=== PATIENT | female | born 1970 | race American Indian/Alaskan Native ===

== ENCOUNTER 2018-07-16 12:10 | Inpatient (IN) | payer OTHER ==
[2018-07-16] MEDS ORDERED: ASPIRIN PO ONE (12:40)
[2018-07-16] MEDS ORDERED: ZOFRAN IV ONE (13:09)
[2018-07-16] MEDS ORDERED: NITRO-BID 2% TP ONE (13:09)
[2018-07-16] MEDS ORDERED: SUBLIMAZE IV ONE (13:09)
[2018-07-16] MEDS ORDERED: PEPCID IV ONE (13:09)
[2018-07-16 13:17] LABS: Basophils % (Auto) 0.4 % (0.0-1.8); Eosinophils # (Auto) 0.2 K/mm3 (0.0-0.4); Eosinophils % (Auto) 2.7 % (0.0-4.3); Hematocrit 24.9 % (30.3-42.9); Hemoglobin 7.7 gm/dl (10.1-14.3); Lymphocytes # (Auto) 1.4 K/mm3 (1.2-5.4); Lymphocytes % (Auto) 17.3 % (13.4-35.0); Mean Corpuscular HGB Conc 31 % (30-34); Monocytes # (Auto) 0.5 K/mm3 (0.0-0.8); Monocytes % (Auto) 5.7 % (0.0-7.3); Platelet Count 377 K/mm3 (140-440); Red Blood Count 3.69 M/mm3 (3.65-5.03); Red Cell Distribution Width 18.1 % (13.2-15.2)
[2018-07-16 13:18] LABS: Mean Corpuscular Volume 68 fl (79-97)
--- NOTE | 2018-07-16 13:18 | Emergency Department Report ---
HPI - General Chief Complaint: Chest Pain Time Seen by Provider: 07/16/18 12:59 - HPI HPI: Room 5 The patient is a 48-year-old female presenting with a chief complaint of chest pain. The patient states she was at work which began feeling palpitations and then felt hot and clammy. Patient states she began feeling dizzy and then she developed left-sided chest pain that was sharp and dull in nature. The patient states her chest pain has been constant and associated with nausea but she denies vomiting, shortness of breath or diaphoresis. Patient was administered nitroglycerin and she states her chest pain improved slightly. The patient now gives her chest pain score of 8-9/10. The patient states her last stress test occurred in August 2017 but she has never had a cardiac catheterization Location: Chest Duration: One day Quality: Sharp/dull Severity: 8-9/10 Modifying factors: [see above] Context: [see above] Mode of transportation: [not driving] ED Past Medical Hx - Past Medical History Previous Medical History?: Yes Hx Hypertension: Yes Additional medical history: hypokalemia, arrhythmias, hypoglycemia, acide reflux, renal mass, gallstones - Surgical History Past Surgical History?: Yes Additional Surgical History: oral; DNC - Family History Family history: no significant - Social History Smoking Status: Former Smoker (none 2-3 years) Substance Use Type: None (denies illicit drug use), Alcohol (occasional) ED Review of Systems ROS: Stated complaint: CHEST PAIN Other details as noted in HPI Constitutional: denies: diaphoresis Eyes: denies: eye pain ENT: denies: throat pain Respiratory: denies: shortness of breath Cardiovascular: chest pain, palpitations Endocrine: no symptoms reported Gastrointestinal: nausea. denies: vomiting Genitourinary: denies: dysuria Musculoskeletal: denies: back pain Neurological: headache (after nitroglycerin) Physical Exam - Physical Exam Vital Signs: Vital Signs 07/16/18 07/16/18 12:28 12:30 Pulse Rate 73 Respiratory 13 Rate Blood Pressure 176/87 O2 Sat by Pulse 100 100 Oximetry Physical Exam: GENERAL: The patient is well-developed well-nourished female lying on stretcher not appearing to be in acute distress. [] HEENT: Normocephalic. Atraumatic. Extraocular motions are intact. Patient has moist mucous membranes. NECK: Supple. Trachea midline CHEST/LUNGS: Clear to auscultation. There is no respiratory distress noted. HEART/CARDIOVASCULAR: Regular. There is no tachycardia. There is no gallop rub or murmur. ABDOMEN: Abdomen is soft, nontender. Patient has normal bowel sounds. There is no abdominal distention. Frequent eructation SKIN: There is no rash. There is no edema. There is no diaphoresis. NEURO: The patient is awake, alert, and oriented. The patient is cooperative. The patient has normal speech MUSCULOSKELETAL: There is no evidence of acute injury. ED Course Vital Signs 07/16/18 07/16/18 12:28 12:30 Pulse Rate 73 Respiratory 13 Rate Blood Pressure 176/87 O2 Sat by Pulse 100 100 Oximetry ED Medical Decision Making - Lab Data Result diagrams: 07/16/18 12:49 07/16/18 12:45 - EKG Data -: EKG Interpreted by Me EKG shows normal: sinus rhythm Rate: normal - EKG Data When compared to previous EKG there are: previous EKG unavailable Interpretation: nonspecific ST-T wave eduar (T-wave inversion in lead 3) - Radiology Data Radiology results: report reviewed (chest x-ray), image reviewed (chest x-ray) interpreted by me: Chest x-ray-no focal infiltrates, no pneumothorax [facility] [address] [place] [address] XRay Report Signed Patient: LINWOOD GUTIERREZ MR#: [id number] : 1970 Acct:[id number] Age/Sex: 48 / F ADM Date: 07/16/18 Loc: ED Attending Dr: Ordering Physician: MARIA VICTORIA DAVIS MD Date of Service: 07/16/18 Procedure(s): XR chest 1V ap Accession Number(s): [id number] cc: MARIA VICTORIA DAVIS MD Fluoro Time In Minutes: FINAL REPORT EXAM: XR CHEST 1V AP HISTORY: chest pain COMPARISON: None. TECHNIQUE: Single frontal view of the chest FINDINGS: The cardiomediastinal silhouette is normal in appearance. The lungs are clear without focal consolidation. There is no pleural effusion or pneumothorax. There is no acute soft tissue or osseous abnormality. IMPRESSION: No acute cardiopulmonary disease. Transcribed By: HAFSA Dictated By: JOSE ALBERTO LUNA MD Electronically Authenticated By: JOSE ALBERTO LUNA MD Signed Date/Time: 07/16/18 1343 DD/ 134 TD/TT: 07/16/18 134 - Differential Diagnosis ACS, pericarditis, GERD, gastritis Critical care attestation.: If time is entered above; I have spent that time in minutes in the direct care of this critically ill patient, excluding procedure time. ED Disposition Clinical Impression: Chest pain Disposition: - OP ADMIT IP TO THIS HOSP Is pt being admited?: Yes Does the pt Need Aspirin: Yes Condition: Fair Instructions: Chest Pain (ED) Referrals: DANDRE FREEDWASKOM MD GONZALO [Primary Care Provider] - 3-5 Days Time of Disposition: 13:59 (hospitalist paged (Dr Ann))
[2018-07-16 13:25] LABS: BUN/Creatinine Ratio 22; Blood Urea Nitrogen 13 mg/dL (7-17); Calcium 8.2 mg/dL (8.4-10.2); Hemolysis Index 1
--- NOTE | 2018-07-16 13:43 | XRay Report ---
FINAL REPORT EXAM: XR CHEST 1V AP HISTORY: chest pain COMPARISON: None. TECHNIQUE: Single frontal view of the chest FINDINGS: The cardiomediastinal silhouette is normal in appearance. The lungs are clear without focal consolidation. There is no pleural effusion or pneumothorax. There is no acute soft tissue or osseous abnormality. IMPRESSION: No acute cardiopulmonary disease.
[2018-07-16] MEDS ORDERED: K-DUR PO ONE ×3 (13:56→16:40)
[2018-07-16] MEDS: DILAUDID IV PRN (20:41)
[2018-07-16] MEDS ORDERED: ZOFRAN IV PRN (23:26)
[2018-07-16] MEDS ORDERED: SODIUM CHLORIDE FLUSH SYRINGE 10 ML IV PRN (23:26)
[2018-07-16] MEDS ORDERED: TYLENOL PO PRN (23:26)
--- NOTE | 2018-07-16 23:28 | History and Physical Report ---
History of Present Illness Date of examination: 07/16/18 Date of admission: 07/16/18 14:12 Chief complaint: Chest pain for 1 day History of present illness: 48-year-old female presenting with a chief complaint of chest pain. The patient states she was at work which began feeling palpitations and then felt hot and clammy. Patient states she began feeling dizzy and then she developed left- sided chest pain that was sharp and dull in nature. The patient states her chest pain has been constant and associated with nausea but she denies vomiting, shortness of breath or diaphoresis. Patient was administered nitroglycerin and she states her chest pain improved slightly. The patient now gives her chest pain score of 8-9/10. The patient states her last stress test occurred in August 2017 but she has never had a cardiac catheterization Past Medical History Previous Medical History?: Yes Hx Hypertension: Yes Additional medical history: hypokalemia, arrhythmias, hypoglycemia, acide reflux, renal mass, gallstones Surgical History Past Surgical History?: Yes Additional Surgical History: oral; DNC Family History Family history: no significant Social History Smoking Status: Former Smoker (none 2-3 years) Substance Use Type: None (denies illicit drug use), Alcohol (occasional) Review of Systems ROS: Stated complaint: CHEST PAIN Other details as noted in HPI Constitutional: denies: diaphoresis Eyes: denies: eye pain ENT: denies: throat pain Respiratory: denies: shortness of breath Cardiovascular: chest pain, palpitations Endocrine: no symptoms reported Gastrointestinal: nausea. denies: vomiting Genitourinary: denies: dysuria Musculoskeletal: denies: back pain Neurological: headache (after nitroglycerin) Medications and Allergies Allergies Allergy/AdvReac Type Severity Reaction Status Date / Time peach AdvReac Unknown Verified 07/16/18 12:36 Active Meds: Active Medications Hydromorphone HCl (Dilaudid) 0.5 mg IV Q3H PRN PRN Reason: Pain , Severe (7-10) Last Admin: 07/16/18 20:41 Dose: 0.5 mg Documented by: Exam - Constitutional Vitals: Temp Pulse Resp BP Pulse Ox 97.7 F 57 L 18 147/66 96 07/16/18 19:49 07/16/18 22:00 07/16/18 22:00 07/16/18 19:49 07/16/18 22:00 General appearance: Present: no acute distress, well-nourished - EENT Eyes: Present: PERRL ENT: hearing intact, clear oral mucosa - Neck Neck: Present: supple, normal ROM - Respiratory Respiratory effort: normal Respiratory: bilateral: CTA - Cardiovascular Heart rate: 78 Rhythm: regular Heart Sounds: Present: S1 & S2. Absent: rub, click - Extremities Extremities: no ischemia, pulses intact, pulses symmetrical, No edema Peripheral Pulses: within normal limits - Abdominal General gastrointestinal: Present: soft, non-tender, non-distended, normal bowel sounds Female genitourinary: Present: normal - Rectal Rectal Exam: deferred - Integumentary Integumentary: Present: clear, warm, dry - Musculoskeletal Musculoskeletal: gait normal, strength equal bilaterally - Psychiatric Psychiatric: appropriate mood/affect, intact judgment & insight - Neurologic Neurologic: CNII-XII intact, moves all extremities - Allied Health Allied health notes reviewed: nursing, case management Results - Labs CBC & Chem 7: 07/16/18 12:49 07/16/18 12:45 Labs: Laboratory Last Values WBC 8.3 K/mm3 (4.5-11.0) 07/16/18 12:49 RBC 3.69 M/mm3 (3.65-5.03) 07/16/18 12:49 Hgb 7.7 gm/dl (10.1-14.3) L 07/16/18 12:49 Hct 24.9 % (30.3-42.9) L 07/16/18 12:49 MCV 68 fl (79-97) L 07/16/18 12:49 MCH 21 pg (28-32) L 07/16/18 12:49 MCHC 31 % (30-34) 07/16/18 12:49 RDW 18.1 % (13.2-15.2) H 07/16/18 12:49 Plt Count 377 K/mm3 (140-440) 07/16/18 12:49 Lymph % (Auto) 17.3 % (13.4-35.0) 07/16/18 12:49 [place] % (Auto) 5.7 % (0.0-7.3) 07/16/18 12:49 Eos % (Auto) 2.7 % (0.0-4.3) 07/16/18 12:49 Baso % (Auto) 0.4 % (0.0-1.8) 07/16/18 12:49 Lymph # 1.4 K/mm3 (1.2-5.4) 07/16/18 12:49 [place] # 0.5 K/mm3 (0.0-0.8) 07/16/18 12:49 Eos # 0.2 K/mm3 (0.0-0.4) 07/16/18 12:49 Baso # 0.0 K/mm3 (0.0-0.1) 07/16/18 12:49 Seg Neutrophils % 73.9 % (40.0-70.0) H 07/16/18 12:49 Seg Neutrophils # 6.1 K/mm3 (1.8-7.7) 07/16/18 12:49 Sodium 140 mmol/L (137-145) 07/16/18 12:45 Potassium 3.1 mmol/L (3.6-5.0) L 07/16/18 12:45 Chloride 101.9 mmol/L (98-107) 07/16/18 12:45 Carbon Dioxide 27 mmol/L (22-30) 07/16/18 12:45 Anion Gap 14 mmol/L 07/16/18 12:45 BUN 13 mg/dL (7-17) 07/16/18 12:45 Creatinine 0.6 mg/dL (0.7-1.2) L 07/16/18 12:45 Estimated GFR > 60 ml/min 07/16/18 12:45 BUN/Creatinine Ratio 22 % 07/16/18 12:45 Glucose 88 mg/dL (65-100) 07/16/18 12:45 Calcium 8.2 mg/dL (8.4-10.2) L 07/16/18 12:45 Troponin T < 0.010 ng/mL (0.00-0.029) 07/16/18 19:27 - Imaging and Cardiology EKG: report reviewed (NSR 82/min LVH) Chest x-ray: report reviewed (NAF) Assessment and Plan Advance Directives: Yes (Full code) VTE prophylaxis?: Chemical Plan of care discussed with patient/family: Yes - Patient Problems (1) Chest pain Current Visit: Yes Status: Acute Qualifiers: Chest pain type: unspecified Qualified Code(s): R07.9 - Chest pain, unspecified Plan to address problem: SChest pain r/o [place] Protocol lexiscan on Wednesday (2) Anemia Current Visit: Yes Status: Chronic Qualifiers: Anemia type: unspecified type Qualified Code(s): D64.9 - Anemia, unspecified Plan to address problem: Check iron levels,B12 ,FOLIC ACID (3) Hypokalemia Current Visit: Yes Status: Acute Plan to address problem: Supplemented (4) DVT prophylaxis Current Visit: Yes Status: Acute Plan to address problem: On Lovenox and GI prophylaxis
[2018-07-17] MEDS ORDERED: K-DUR PO ONE ×2 (03:34→09:00)
[2018-07-17 05:32] LABS: BUN/Creatinine Ratio 16; Blood Urea Nitrogen 8 mg/dL (7-17); Hemolysis Index 0
[2018-07-17] MEDS: PERCOCET 5/325 PO PRN ×2 (10:13→16:10)
[2018-07-17] MEDS: SODIUM CHLORIDE FLUSH SYRINGE 10 ML IV SCH ×2 (10:24→22:43)
[2018-07-17 11:04] LABS: % Iron Saturation 5.99 %
--- NOTE | 2018-07-17 17:25 | Progress Note ---
Assessment and Plan - Chest pain Likely costochondritis Continue with aspirin, oxygen, nitroglycerin, morphine. Lexiscan stress test for 07/18/2018 - Severe anemia of iron deficiency Secondary to menorrhagia Supplement iron Counseling and on permanent treatment for menorrhagia done as patient has 5 children - Hypokalemia Supplement for Will check mg level -DVT prophylaxis SCDs only given patient's severe anemia - Disposition: supplement potassium level, discharge home if stress test is normal on oral iron supplementation. Time spent: 30 minutes Subjective Date of service: 07/17/18 Principal diagnosis: chest pain, severe anemia Interval history: Still having chest pain. Reproducible. No palpitations orthopnea present, dyspnea Objective - Exam Narrative Exam: Constitutional: Well-nourished well-developed. In no distress Head: Normocephalic atraumatic Eyes: Conjunctiva pallor. Pupils are equal round and reactive to light Nose: No enlarged turbinates, no septal deviation. Mouth: Moist mucous membranes. Neck: Supple no thyromegaly. No bruit. No JVD Heart: Regular rate and rhythm, S1-S2 normal. No rubs murmurs or gallop Lungs: Clear to auscultation bilaterally. no rales or rhonchi Abdomen: Soft, nontender. Bowel sound are present. Extremities: No edema, no cyanosis, no clubbing. Neuro: Alert oriented Oriented x3. No focal sensory or motor deficit. Skin: No rashes or hyperpigmented spots Musculoskeletal system: No joint pain or swelling Hematological: No petechia or subcutanous hemorrhages. Immunological: No multiple septic spots on the skin Lymphatic: No generalized lymphadenopathy Psychiatry: Euthymic. Calm. - Constitutional Vitals: Vital Signs - 12hr 07/17/18 07/17/18 07/17/18 07:35 10:00 12:21 Temperature 97.8 F Pulse Rate 62 57 L Pulse Rate [ 62 Apical] Pulse Rate [ 62 Left Radial] Pulse Rate [ 62 Right Radial] Respiratory 16 18 Rate Blood Pressure 143/73 152/65 O2 Sat by Pulse 98 99 100 Oximetry 07/17/18 07/17/18 13:35 14:13 Temperature 98.2 F Pulse Rate 61 Pulse Rate [ Apical] Pulse Rate [ Left Radial] Pulse Rate [ Right Radial] Respiratory Rate Blood Pressure O2 Sat by Pulse Oximetry - Labs CBC & Chem 7: 07/16/18 12:49 07/17/18 04:34 Labs: Abnormal lab results 07/16/18 07/17/18 07/17/18 Range/Units 23:49 04:34 10:01 Potassium 3.4 L (3.6-5.0) mmol/L Creatinine 0.5 L (0.7-1.2) mg/dL Hemoglobin A1c < 4.0 L (4-6) % Calcium 8.0 L (8.4-10.2) mg/dL Iron 20 L (37-170) ug/dL
[2018-07-17] MEDS: DILAUDID IV PRN ×2 (19:20→23:08)
[2018-07-17] MEDS ORDERED: LOVENOX SUB-Q SCH (22:00)
[2018-07-17] MEDS ORDERED: DULCOLAX PO PRN (23:44)
[2018-07-18 06:07] LABS: Basophils # (Auto) 0.1 K/mm3 (0.0-0.1); Eosinophils # (Auto) 0.2 K/mm3 (0.0-0.4); Eosinophils % (Auto) 3.3 % (0.0-4.3); Hematocrit 24.7 % (30.3-42.9); Hemoglobin 7.7 gm/dl (10.1-14.3); Lymphocytes # (Auto) 1.7 K/mm3 (1.2-5.4); Lymphocytes % (Auto) 26.2 % (13.4-35.0); Mean Corpuscular HGB Conc 31 % (30-34); Monocytes # (Auto) 0.4 K/mm3 (0.0-0.8); Monocytes % (Auto) 6.4 % (0.0-7.3); Platelet Count 344 K/mm3 (140-440); Red Blood Count 3.65 M/mm3 (3.65-5.03); Red Cell Distribution Width 18.3 % (13.2-15.2)
[2018-07-18 06:16] LABS: Mean Corpuscular Volume 68 fl (79-97)
[2018-07-18 06:32] LABS: Albumin 3.2 g/dL (3.9-5); BUN/Creatinine Ratio 18; Blood Urea Nitrogen 11 mg/dL (7-17); Calcium 8.2 mg/dL (8.4-10.2); Hemolysis Index 1
[2018-07-18 06:37] LABS: Alanine Aminotransferase < 5 units/L (7-56)
[2018-07-18] MEDS: PERCOCET 5/325 PO PRN (07:45)
[2018-07-18] MEDS ORDERED: FERGON PO SCH (08:00)
[2018-07-18] MEDS ORDERED: VITAMIN C PO SCH (10:00)
[2018-07-18] MEDS ORDERED: LEXISCAN IV ONE ×2 (10:28→10:29)
[2018-07-18] MEDS: DILAUDID IV PRN (11:57)
[2018-07-18] MEDS: SODIUM CHLORIDE FLUSH SYRINGE 10 ML IV SCH (12:01)
--- NOTE | 2018-07-18 12:31 | Discharge Summary ---
Providers - Providers Date of Admission: 07/16/18 14:12 Date of discharge: 07/18/18 Attending physician: MIN SHANE none [facility] Reason for admission: chest pain Condition: Fair Pertinent studies: CXR, EKG and Lexiscan stress Procedures: none Hospital course: 48-year-old female presenting with a chief complaint of chest pain. The patient states she was at work which began feeling palpitations and then felt hot and clammy. Patient states she began feeling dizzy and then she developed left- sided chest pain that was sharp and dull in nature. The patient states her chest pain has been constant and associated with nausea but she denies vomiting, shortness of breath or diaphoresis. Patient was administered nitroglycerin and she states her chest pain improved slightly. The patient now gives her chest pain score of 8-9/10. The patient states her last stress test occurred in August 2017 but she has never had a cardiac catheterization Disposition: - TO HOME OR SELFCARE Time spent for discharge: 35 mins - Discharge Diagnoses (1) Chest pain Status: Acute Qualifiers: Chest pain type: unspecified Qualified Code(s): R07.9 - Chest pain, unspecified (2) Hypokalemia Status: Acute (3) Anemia Status: Chronic Qualifiers: Anemia type: unspecified type Qualified Code(s): D64.9 - Anemia, unspecified Core Measure Documentation - Palliative Care Palliative Care/ Comfort Measures: Not Applicable - Core Measures Any of the following diagnoses?: none Exam - Physical Exam Narrative exam: Constitutional: Well-nourished well-developed. In no distress Head: Normocephalic atraumatic Eyes: Conjunctiva pallor. Pupils are equal round and reactive to light Nose: No enlarged turbinates, no septal deviation. Mouth: Moist mucous membranes. Neck: Supple no thyromegaly. No bruit. No JVD Heart: Regular rate and rhythm, S1-S2 normal. No rubs murmurs or gallop Lungs: Clear to auscultation bilaterally. no rales or rhonchi Abdomen: Soft, nontender. Bowel sound are present. Extremities: No edema, no cyanosis, no clubbing. Neuro: Alert oriented Oriented x3. No focal sensory or motor deficit. Skin: No rashes or hyperpigmented spots Musculoskeletal system: No joint pain or swelling Hematological: No petechia or subcutanous hemorrhages. Immunological: No multiple septic spots on the skin Lymphatic: No generalized lymphadenopathy Psychiatry: Euthymic. Calm. - Constitutional Vitals: Temp Pulse Resp BP Pulse Ox 98.3 F 62 19 136/69 99 07/18/18 07:18 07/18/18 10:00 07/18/18 10:00 07/18/18 10:47 07/18/18 10:00 Plan Activity: advance as tolerated Weight Bearing Status: Weight Bear as Tolerated Diet: regular [facility] GON[facility] [Primary Care Provider] - 3-5 Days Prescriptions: Acetaminophen [Acetaminophen TAB] 650 mg PO Q4H PRN #20 tablet PRN Reason: Pain MILD(1-3)/Fever >100.5/DE [place] Ascorbic Acid [Vitamin C] 500 mg PO QDAY #30 tablet Bisacodyl [Dulcolax tab] 10 mg PO QDAY PRN #30 tablet PRN Reason: Constipation Ferrous Gluconate [Fergon 325 MG tab] 324 mg PO TID #90 tablet
[2018-07-18 12:32] VITALS: BP 142/67
--- NOTE | 2018-07-18 23:30 | Treadmill Report ---
NUCLEAR PERFUSION SCAN REFERRING PHYSICIAN: Mami Ann MD PROTOCOL: The patient was brought to the stress lab in postabsorptive state, given 10 mCi of technetium 99m at rest. The patient underwent rest imaging. The patient underwent Lexiscan stress test. At peak stress, the patient was given 26 mCi of technetium 99m. Shortly thereafter, the patient underwent stress imaging. Raw imaging reveals significant GI artifact, no significant motion artifact. Technically difficult study, but grossly no evidence significant fixed or reversible perfusion defects suggestive of prior infarction or ischemia. Gated wall motion reveals normal systolic thickening, calculated ejection fraction 80%, no TID. CONCLUSIONS: 1. Technically difficult study due to the partial obscuration of the inferior wall due to the subdiaphragmatic activity, but grossly probably normal without evidence of significant degree of ischemia or prior infarction. 2. Normal left ventricular systolic performance without evidence of transient ischemic, dilatation or stress-induced segmental wall motion abnormalities. 3. Normal Lexiscan stress test with evidence of diagnostic ST changes, arrhythmias, or chest pain during stress or recovery. JOB# [id number] USHA/BOB
== END 2018-07-18 14:50 | disposition home or self-care (01) | DRG 206 ==
LOC: ED 12:10 → 4A 14:12
PROVIDERS: ADMIT Internal Medicine; ATTEND Family Medicine
DX: M94.0 Chondrocostal junction syndrome [Tietze] (principal); E87.6 Hypokalemia; D50.9 Iron deficiency anemia, unspecified; N92.0 Excessive and frequent menstruation with regular cycle; I10 Essential (primary) hypertension; Z87.891 Personal history of nicotine dependence
CPT/HCPCS: 36415; 71045; 78452; 80048; 80053; 83036; 83550; 83735; 84100; 84484; 85025; 93005; 93010; 93017; G0378; A9502; J1170; J1650; J2405; J2785; J3010